=== PATIENT | male | born 1955 | race Caucasian/White ===

== ENCOUNTER 2018-08-08 09:54 | Day surgery (SDC) | payer OTHER ==
[2018-07-23 11:29] VITALS: BMI 24.7
[~2018-08-08 09:54] MED LIST: BUPIVACAINE HCL/PF (5 MG/ML) 30 ML VIAL IJ ONE; CEFAZOLIN 2 GM in DEXTROSE 5%-WATER - 50 ML IVPB ONE; CELECOXIB 200 MG CAPSULE PO ONE; DEXAMETHASONE SOD PHOSPHATE 4 MG/1 ML VIAL ONE; GABAPENTIN 300 MG CAPSULE (FP) PO ONE; MIDAZOLAM HCL 2 MG/2 ML SINGLE DOSE VIAL ONE; ONDANSETRON 4 MG/2 ML VIAL ONE; PROPOFOL 20 ML ONE; ROPIVICAINE 0.2%/MORPH PF/KETOROLAC - 51ML DISP.SYRINGE IA ONE; SODIUM CHLORIDE 0.9% P/F 10 ML VIAL IJ ONE; SUCCINYLCHOLINE CHLORIDE 200 MG/10 ML VIAL ONE; TRANEXAMIC ACID 1000 MG/10 ML VIAL IVPUSH ONE; ceFAZolin SODIUM 1 GM VIAL ONE; oxyCODONE HCL 10 MG SUSTAINED ACTING TABLET PO ONE
--- NOTE | 2018-08-08 09:54 | HP ---
History & Physical Update - History History: No Change - Physical Physical: No Change - Assessment Assessment: No Change - Plan Plan: No Change (Full H&P from 07/24/18)
[2018-08-08] MEDS ORDERED: MAG HYDROX/AL HYDROX/SIMETH 30 ML UNIT-DOSE CUP PO PRN (09:55)
[2018-08-08] MEDS ORDERED: ONDANSETRON 4 MG/2 ML VIAL IVPUSH PRN ×2 (09:55→10:02)
[2018-08-08] MEDS ORDERED: LACTATED RINGERS SOLUTION 1,000 ML IV SCH (10:00)
[2018-08-08] MEDS ORDERED: PROMETHAZINE HCL 25 MG/1 ML VIAL IVPUSH PRN (10:02)
[2018-08-08] MEDS ORDERED: oxyCODONE HCL 5 MG TABLET PO PRN (10:02)
--- NOTE | 2018-08-08 10:10 | OP ---
Operative Note - Note: Operative Date: 08/08/18 Pre-Operative Diagnosis: Left knee osteoarthritis Operation: Left knee partial knee makoplasty Post-Operative Diagnosis: Same as Pre-op Surgeon: Terence Delgado First Line Production Supervisor: Chandler Gomez Anesthesiologist/CIVIL RIGHTS INVESTIGATOR: Nehemiah Han Anesthesia: Spinal Operative Report Dictated: Yes
--- NOTE | 2018-08-08 10:10 | SURG ---
Surgery Invasive Physician Note Invasive Physician: Chandler Gomez PA-C Date of Service: 08/08/18 Diagnosis: Left knee osteoarthritis Procedure: Left knee partial makoplasty I was present for the entirety of the operative procedure. For further detail, please refer to operative report. Visit type - Case Type Case Type: Scheduled - Emergency Emergency Visit: No - New patient This patient is new to me today: Yes Date on this admission: 08/08/18 - Critical Care Critical Care patient: No
--- NOTE | 2018-08-08 10:44 | OP ---
DATE OF OPERATION: 08/08/2018 PREOPERATIVE DIAGNOSIS: Left knee medial compartment osteoarthritis. POSTOPERATIVE DIAGNOSIS: Left knee medial compartment osteoarthritis. OPERATION PERFORMED: Left medial partial knee replacement with MAKOplasty assistance. SURGEON: Terence Delgado MD SOCIAL MEDIA DEVELOPER: JAIMEE Arteaga IMPLANTS: [place] 5 left medial tibia and 5 left medial femur with 8-mm insert. TOURNIQUET TIME: 83 minutes. ESTIMATED BLOOD LOSS: Less than 50 mL. DISPOSITION: Patient returned to the recovery room in stable condition. DRAINS: None. POSITIONS: Preoperatively, he was in 5 degrees of varus. Postoperatively, he was in 1 degree of varus. PREOPERATIVE RANGE OF MOTION: He had a 3-degree flexion contracture. POSTOPERATIVE RANGE OF MOTION: His range of motion was 0 to 140 degrees. INDICATIONS FOR THE PROCEDURE: Patient failed greater than 6 months of non-operative treatment for left knee arthritis. We had a long discussion about the pros and cons of partial versus total knee replacement. He decided to have a partial knee replacement. We had a long discussion regarding the plan, the expected outcome, and the risks, benefits, and alternatives of surgery. The risks include, but are not limited to, infection which may require future surgery and removal of implants, bleeding which may require a transfusion, damage to nerves, arteries, veins, tendons, muscles, and other adjacent structures leading to possible numbness, weakness, decreased function, and/or possible need for surgical repair. Also discussed was the possibility of intraoperative and postoperative fractures, implant loosening, stiffness, need for extensive therapy and need for revision surgery for a variety of reasons. Especially, we also discussed possibility of needing to convert this to a total knee replacement. This could be due to implant loosening or progression of his arthritis. We also discussed blood clots and other medical complications. This was discussed at length, and consent was obtained. PROCEDURE IN DETAIL: Patient was taken to the operating room and then placed in the supine position. Following the induction of spinal anesthesia, a well-padded tourniquet was placed high in the left thigh, and the left lower extremity was prepped and draped in a sterile fashion. A time-out was performed to confirm the correct side. We verified that the side was marked and confirmed the correct patient and procedure to be performed as well as that the patient received the appropriate preoperative antibiotics and tranexamic acid and had a compression device on the non-operative leg. The tourniquet was elevated followed by a midline incision and medial parapatellar arthrotomy. We placed the checkpoints in the femur and tibia. Then, we placed through stab incisions in the thigh and naylor the arrays bluntly dissecting to the bone. We then registered the patient, planned our surgery, and while protecting the surrounding soft tissues, made our bone cuts and burring. We then copiously irrigated the knee, removed the meniscus, and we then trialed with trials of our final sizes. There was good stability, soft tissue tension, range of motion. The patella tracked centrally. The trials were removed. We copiously irrigated the knee. We did sequential supplementation starting with the tibia and then the femur. Excess cement was removed. We inserted the final poly and it seated flush. When all cement had hardened, the knee was copiously irrigated, and an anesthetic cocktail was injected. The knee was measured from 0 to 140 degrees and 1 degree of varus, stable to anterior/posterior varus and valgus stress, and good range of motion and patellar tracking and soft tissue tension. The arrays and checkpoints were removed. The arthrotomy was closed with 0 Vicryl and 0 V-Loc. Then, 2-0 Vicryl and nichole were removed the skin, we did make sure that all the spots for the arrays were irrigated, as well prior to closure. A dry sterile compression dressing was placed, the the tourniquet was released, and the compartments were soft at the end of the procedure. Pulses were palpated. Patient was returned to the recovery room in stable condition where he will be mobilized, weightbearing as tolerated. WOUND CLASSIFICATION: Clean. COMPLICATIONS: None. SPECIMENS: None. Flora [id number]
[2018-08-08] MEDS: SENNOSIDES/DOCUSATE COMBO (SENNA PLUS) TABLET (UD) PO SCH ×2 (11:56→21:52)
[2018-08-08] MEDS: PANTOPRAZOLE 40 MG TABLET (FP) PO SCH (11:56)
[2018-08-08] MEDS: MULTIVITAMINS (DAILY MVI) TABLET (FP) PO SCH (11:56)
[2018-08-08] MEDS: CEFAZOLIN 2 GM/D5W 2 GM/50 ML ML IVPB SCH ×2 (15:32→23:42)
[2018-08-08] MEDS: ACETAMINOPHEN 325 MG TABLET (FP) PO SCH ×2 (17:18→23:08)
[2018-08-08] MEDS: oxyCODONE HCL 10 MG SUSTAINED ACTING TABLET PO SCH (21:52)
[2018-08-09] MEDS: ACETAMINOPHEN 325 MG TABLET (FP) PO SCH ×2 (04:17→11:36)
[2018-08-09] MEDS: oxyCODONE HCL 5 MG TABLET PO PRN ×3 (04:23→11:35)
[2018-08-09 06:53] VITALS: TEMP 98.2
[2018-08-09] MEDS ORDERED: ASPIRIN 325 MG TABLET PO SCH (08:00)
[2018-08-09 08:38] VITALS: BP 110/72; PULSE 64
--- NOTE | 2018-08-09 08:53 | PN ---
Progress Note (short form) - Note Progress Note: No acute events pain controlled has been up and walking without difficulty no acute distress a and o x3 dressing c/d/i nvid A/P: POD#1 s/p l partial knee doing well dc instructions reviewed
[2018-08-09] MEDS: MULTIVITAMINS (DAILY MVI) TABLET (FP) PO SCH (09:49)
[2018-08-09] MEDS: SENNOSIDES/DOCUSATE COMBO (SENNA PLUS) TABLET (UD) PO SCH (09:49)
[2018-08-09] MEDS: PANTOPRAZOLE 40 MG TABLET (FP) PO SCH (09:49)
[2018-08-09] MEDS: oxyCODONE HCL 10 MG SUSTAINED ACTING TABLET PO SCH (09:51)
== END 2018-08-09 13:00 | disposition home or self-care (01) ==
LOC: FASUSAT 09:54 → FM/S 09:54 → FASUSAT 08-09 13:00
PROVIDERS: ATTEND Orthopaedic Surgery
PROC: 8E0YXBZ Computer Assisted Procedure of Lower Extremity (ICD-10-PCS; 2018-08-08)
PROC: 8E0Y0CZ Robotic Assisted Procedure of Lower Extremity, Open Approach (ICD-10-PCS; 2018-08-08)
PROC: 0SRD0L9 Replacement of Left Knee Joint with Medial Unicondylar Synthetic Substitute, Cemented, Open Approach (ICD-10-PCS; principal; 2018-08-08 08:19)
DX: M17.12 Unilateral primary osteoarthritis, left knee (principal)
CPT/HCPCS: 20985; 27446; C1776; S2900; 73560-TC-LT-FY; 94760; 97116-GP; 97162-GP